=== PATIENT | female | born 1930 | race Asian ===

== ENCOUNTER 2016-08-17 08:44 | Day surgery (SDC) | payer OTHER, BC ==
[2016-08-17 09:18] VITALS: BMI 19.9
[2016-08-17] MEDS ORDERED: PROPOFOL 20 ML ONE ×2 (09:25)
[2016-08-17] MEDS ORDERED: TRIAMCINOLONE ACET 40MG/1ML VIAL ONE (09:48)
[2016-08-17 10:17] VITALS: TEMP 97.6
[2016-08-17 12:56] VITALS: BP 128/60; PULSE 53
--- NOTE | 2016-08-18 14:16 | PATH ---
Surgical Pathology Report Patient Name: COLBY MCGUIRE [facility]. Rec. #: [id number] /Age/Gender: 1930 (Age: 86) / F Account: [id number] Location: [facility]-ENDOSCOPY Taken: 08/17/2016 Received: 08/17/2016 Reported: 08/18/2016 Physicians: Juni Mcknight M.D. Specimen(s) Received BX ESOPHAGUS Clinical History Abnormal CT scan Esophageal ulcer, esophageal stricture Final Diagnosis ESOPHAGUS, ULCER, BIOPSY: ULCERATED SQUAMOCOLUMNAR JUNCTIONAL MUCOSA WITH ASSOCIATED MARKED ACTIVE AND CHRONIC INFLAMMATION AND REFLUX TYPE CHANGES. 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 NO HISTOLOGIC EVIDENCE OF VIRAL CYTOPATHIC EFFECT. NO INTESTINAL METAPLASIA (GUPTA'S ESOPHAGUS) IDENTIFIED. Electronically Signed Kishore Parnell M.D. Gross Description Received in formalin, labeled "biopsy ulcer in esophagus" are 4 leong, irregular portions of soft tissue ranging from 0.1-0.4 cm. in greatest dimension. The specimens are submitted in toto in one cassette. /08/17/2016 [facility]08/17/2016
== END 2016-08-17 12:25 | disposition home or self-care (01) ==
LOC: JASU-ENDO 08:44
PROVIDERS: ATTEND Internal Medicine Gastroenterology
PROC: 0DB58ZX Excision of Esophagus, Via Natural or Artificial Opening Endoscopic, Diagnostic (ICD-10-PCS; 2016-08-17)
PROC: 0D748ZZ Dilation of Esophagogastric Junction, Via Natural or Artificial Opening Endoscopic (ICD-10-PCS; principal; 2016-08-17 10:30)
DX: K22.10 Ulcer of esophagus without bleeding (principal); K22.2 Esophageal obstruction
CPT/HCPCS: 88305-TC; 88312-TC